=== PATIENT | male | born 1965 | race Caucasian/White ===

== ENCOUNTER 2022-08-22 11:50 | Day surgery (SDC) | payer OTHER ==
[~2022-08-22] VITALS: Ht 180.3 cm; Wt 85.0 kg
--- NOTE | ~2022-08-22 | OR ---
[facility] [address], [place] [address] Draft DATE OF OPERATION: 08/22/2022 SURGEON: Julissa Short MD PREOPERATIVE DIAGNOSIS: Colon screening. POSTOPERATIVE DIAGNOSIS: Sigmoid diverticulosis. No evidence of polyps. PROCEDURE: Total colonoscopy to cecum. ANESTHESIA: Intravenous sedation; fentanyl 250 mcg and Versed 11 mg. INDICATION: This 57-year-old white man is a patient of Dr. Jeovanny Vuong and underwent colonoscopy in 2013, at which time he was found to have sigmoid diverticulosis. Biopsy of the ileum showed hyperplastic polyp of the ileocecal valve. He has had occasional left lower abdominal pain, sometimes bilateral abdominal pain, but no blood per rectum. He does have family history of colon cancer in his mother and father. He is admitted at this time to undergo screening colonoscopy. He understands the risk of bleeding, infection, and perforation. Notably, he has had joint replacement therapy of shoulder and knee and therefore was given Ancef 2 g preoperatively. FINDINGS: The prep was excellent. Complete colonoscopy was undertaken to the cecum without question. He had numerous diverticula of the sigmoid and left colon. There was no evidence of polyp or colitis or cancer. DESCRIPTION OF PROCEDURE: The patient was brought to the endoscopy suite and placed in the lateral decubitus position, given intravenous sedation to the point of slurred speech and nystagmus. Digital rectal examination was normal. The Olympus video colonoscope was passed in the rectum and manipulated into the sigmoid. Considerable diverticular changes were noted. Because of that, the scope was changed out to a different one with more flexibility. The scope was able to negotiate the area reasonably well ultimately leaving the left colon advancing rather easily to the cecum itself. The scope was then withdrawn. Examination throughout upon withdrawal of scope showed no sign of polyps, only PATIENT NAME: TERRY MOSES OPERATIVE REPORT DATE OF : 61 REPORT #: [id number] PHYSICIAN: JULISSA SHORT MD PCP: JEOVANNY VUONG MD REPORT IS CONFIDENTIAL AND NOT TO BE RELEASED WITHOUT AUTHORIZATION [facility] [address] [place] [id number] Draft diverticulosis of the left colon and sigmoid. The rectum was normal as well. Scope was removed. The patient was taken to the recovery room in good condition. CONCLUDING DIAGNOSIS: Diverticulosis. No sign of polyps. PLAN: Recommend repeat colonoscopy in 5 years based on family history of colon cancer in mother and father. MD MANPREET Still/MODL /[id number] cc: Jeovanny Vuong MD Copies: JEOVANNY VUONG MD ~ PATIENT NAME: TERRY MOSES OPERATIVE REPORT DATE OF : 61 REPORT #: [id number] PHYSICIAN: JULISSA SHORT MD PCP: JEOVANNY VUONG MD REPORT IS CONFIDENTIAL AND NOT TO BE RELEASED WITHOUT AUTHORIZATION
[~2022-08-22 11:50] MED LIST: DILAUDID4 MG PO; IBUPROFEN600 MG PO; LISINOPRIL10 MG PO; LISINOPRIL20 MG PO; MELATONIN3 MG PO; MIRALAX17 GM PO; OMEPRAZOLE20 MG PO; OXYCODONE HCL5 MG PO; PERCOCET 5-3251 EACH PO
[2022-08-22 12:13] VITALS: BP 150/94
[2022-08-22] MEDS ORDERED: ADULT ASPIRIN R81 MG PO (12:18)
--- NOTE | 2022-08-22 14:02 | NUR ---
08/22/22 1402 lCaudine Bains 1358-PT TO PACU IN SUPINE POSITION. EYES OPEN. PT DENIES PAIN AND NAUSEA. BREATHING EASY AND UNLABORED. SPO2 >95% ON 2 L O2 VIA NC. O2 TITRATED TO ROOM AIR. PT REPOSITIONS SELF TO LL POSITION. PT EDUCATED TO PASS GAS AND UPDATED ON POC IN PACU.
[2022-08-22 15:03] VITALS: BP 130/88
== END 2022-08-22 15:00 | disposition home or self-care (01) ==
LOC: OPS 11:50 → DS 11:52 → OPS 13:00 → DS 13:00 → OPS 15:00
PROVIDERS: ATTEND Surgery
PROC: 0DJD8ZZ Inspection of Lower Intestinal Tract, Via Natural or Artificial Opening Endoscopic (ICD-10-PCS; principal; 2022-08-22 13:00)
DX: R10.32 Left lower quadrant pain (principal); R10.31 Right lower quadrant pain; K57.30 Diverticulosis of large intestine without perforation or abscess without bleeding; I10 Essential (primary) hypertension; Z86.010 Personal history of colon polyps; Z80.0 Family history of malignant neoplasm of digestive organs; Z98.890 Other specified postprocedural states; Z96.659 Presence of unspecified artificial knee joint; Z88.0 Allergy status to penicillin
CPT/HCPCS: J2250; J3010; J7121